=== PATIENT | female | born 1985 | race African-American/Black ===

== ENCOUNTER 2016-08-24 10:04 | Emergency (ER) | payer OTHER ==
[~2016-08-24] VITALS: Ht 165.1 cm; Wt 85.1 kg
[2016-08-24] MEDS ORDERED: MOTRIN800 MG PO (11:00)
[2016-08-24 11:10] VITALS: BP 134/88
== END 2016-08-24 11:26 | disposition home or self-care (01) ==
LOC: EME 10:04
DX: S20.219A Contusion of unspecified front wall of thorax, initial encounter (principal); S60.512A Abrasion of left hand, initial encounter; S60.511A Abrasion of right hand, initial encounter; S00.81XA Abrasion of other part of head, initial encounter; Y04.8XXA Assault by other bodily force, initial encounter; Y92.199 Unspecified place in other specified residential institution as the place of occurrence of the external cause; Y07.59 Other non-family member, perpetrator of maltreatment and neglect; Y99.0 Civilian activity done for income or pay; J45.909 Unspecified asthma, uncomplicated
CPT/HCPCS: 99281; 99283